=== PATIENT | female | born 1965 | race Caucasian/White ===

== ENCOUNTER → 2022-02-14 | Outpatient (CLI) | payer OTHER, SELFPAY ==
[2022-02-14 09:46] LABS: Bacteria 0 SEEN /hpf (None Seen); Mucous, Urine 0 SEEN /hpf (<or=2+); Red Blood Cells-Urine 0 SEEN /hpf (0-5); Squamous Epithelial Cells - UA 0 SEEN /hpf (5-10)
[2022-02-14 10:31] LABS: Absolute Lymphocyte Count 1.02 X10^3/uL (0.83-4.51); Absolute Neutrophil Count 4.1 X10^3/uL (2.0-7.7); Basophil# 0.03 X10^3/uL; Basophil% 0.5 % (0-1); Eosinophil# 0.04 X10^3/uL; Eosinophils% 0.7 % (0-5); Hematocrit 41.6 % (37-47); Hemoglobin 13.6 g/dL (12.0-15.0); Lymphocyte # 1.02 X10^3/ul (0.83-4.51); Lymphocyte % 18.1 % (19-41); Mean Corp Hgb Conc 32.7 g/dL (32-36); Mean Corpuscular Hgb 31.1 pg (27.0-32.0); Mean Corpuscular Volume 95.2 fL (81-99); Mean Platelet Vol. 9.8 fl (6.2-12.0); Monocyte% 7.1 % (0-10); NRBC Flagged by Analyzer 0 % (0-5); Neutrophil # 4.12 X10^3/uL (2.7-7.7); Neutrophil % 73.1 % (47-70); Platelet Count 276 K/mm3 (150-450); RBC Distribution Width CV 12.8 % (11.6-14.6); RBC Distribution Width SD 45.4 fl (35.1-43.9); Red Blood Count 4.37 M/mm3 (4.2-5.4); White Blood Count 5.6 K/mm3 (4.4-11.0)
[2022-02-14 10:32] LABS: Color, Urine Yellow (Yellow); Glucose, Dipstick Normal (Normal); Ketone-Dipstick Negative (Negative); Leukocyte Esterase-Dipstick 25 /ul (Negative); Nitrite-Dipstick Negative (Negative); Occult Blood-Urine Negative /ul (Negative); Protein-Dipstick Negative (Negative); Urine Bilirubin Dipstick Negative (Negative); Urine Clarity Sl. Cloudy (Clear); Urine Urobilinogen Normal (Normal); Urine pH 6.5 (5.0 - 8.0)
[2022-02-14 10:40] LABS: White Blood Cells 0-5 SEEN /hpf (0-5)
[2022-02-14 10:58] LABS: AST(SGOT) 26 U/L (15-37); Alanine Aminotransfer ALT/SGPT 37 U/L (13-56); Albumin, Serum 4.1 g/dL (3.2-5.0); Alkaline Phosphatase 73 U/L (45-117); Bilirubin, Direct 0.13 mg/dL (0.00-0.30); Creatinine, Serum 0.67 mg/dL (0.55-1.02); EST Glomerular Filtration Rate 96 mL/min (>60); Est Glom Filt Rate - Afr Amer 117 mL/min (>60); Globulin 3.3 g/dL (2.2-4.2); Protein, Total 7.4 g/dL (6.4-8.2)
[2022-02-16 15:36] LABS: Anti-dsDNA Ab 4 IU/mL (0-9)
[2022-02-17 17:24] LABS: Anti-Cardiolipin Ab, IgA, Qn < 9 APL U/mL (0-11); Anti-Cardiolipin Ab, IgG, Qn < 9 GPL U/mL (0-14); Anti-Cardiolipin Ab, IgM, Qn 43 MPL U/mL (0-12); Beta-2-Glycoprotein I IgA <9 (0-25); Beta-2-Glycoprotein I IgG <9 (0-20); Beta-2-Glycoprotein I IgM <9 (0-32); Complement C3 94 mg/dL (82-167)
== END | disposition home or self-care (01) ==
PROVIDERS: PCP Internal Medicine; Referring Provider Internal Medicine Rheumatology; Visit Provider Internal Medicine Rheumatology
DX: R76.0 Raised antibody titer (principal); D72.819 Decreased white blood cell count, unspecified
CPT/HCPCS: 80076; 81001; 82565; 85025; 86146; 86147; 86160; 86225

== ENCOUNTER 2022-03-03 09:21 | Emergency (ER) | payer OTHER, SELFPAY ==
[2022-03-03 09:23] VITALS: BP 112/80; PULSE 87; RESP 18; TEMP 36.7; O2SAT 100; BMI 22.7
--- NOTE | 2022-03-03 09:41 | EX.ED.GENINJ ---
HPI History of Present Illness Chief Complaint: Bite Informant: patient Narrative Narrative: 57-year-old female presenting to the emergency room for dog bite. 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 She notes that she was bit on the right lower leg. The dog pulled her left shoe off. The client stated that the dogs have had their vaccinations including rabies. Patient states her tetanus should be up-to-date. PFSH PFSH Home Medications alprazolam 0.5 mg tablet 1 tab 03/03/22 [History Last Taken Unknown] amoxicillin 875 mg-potassium clavulanate 125 mg tablet 875 mg PO Q12H #10 TABLETS 03/03/22 [Rx Last Taken Unknown] celecoxib 200 mg capsule 1 cap 03/03/22 [History Last Taken Unknown] ibuprofen 600 mg tablet tab 03/03/22 [History Last Taken Unknown] onabotulinumtoxinA 100 unit solution for injection (Botox) ml 03/03/22 [History Last Taken Unknown] vilazodone 40 mg tablet 1 tab 03/03/22 [History Last Taken Unknown] Allergy/AdvReac Type Severity Reaction Status Date / Time acetaminophen [From Vicodin] Allergy Other Verified 03/03/22 09:22 bee venom protein (honey bee) Allergy Hives Verified 03/03/22 09:22 hydrocodone [From Vicodin] Allergy Other Verified 03/03/22 09:22 ranitidine [From Zantac] Allergy Itching Verified 03/03/22 09:22 Social History (Updated 03/03/22 @ 09:[address] Sung Stearns, DO) Smoking Status: Never smoker substance use type: does not use ROS ROS ED Constitutional Constitutional ED: Denies chills or weight loss Eyes Eyes: Denies change in vision or diplopia ENT ENT ED: Denies ear pain, rhinorrhea or sore throat Cardiovascular Cardiovascular: Denies chest pain, orthopnea, palpitations or racing heartbeat Respiratory/Chest Respiratory/Chest: Denies cough, dyspnea or orthopnea Gastrointestinal Gastrointestinal: Denies abdominal pain, diarrhea, nausea or vomiting Genitourinary Genitourinary ED: Denies dysuria, hematuria or urinary frequency Musculoskeletal Musculoskeletal: Denies arthralgias or myalgias Integumentary Reports other Details: Dog Bite ; Denies abscess or rash Neurologic Neurologic: Denies headache(s) or weakness Psychiatric Psychiatric: Denies anxiety, depression, suicidal ideation or suicidal thoughts Endocrine Endocrinology: Denies polydipsia, polyphagia or polyuria Allergic/Immunologic Allergic/Immunologic ED: Denies mouth swelling, tongue swelling or urticaria EXAM Physical Exam Const Vital Signs: 03/03/22 09:23 Temperature 98.0 F Temperature Source Temporal Pulse Rate 87 Respiratory Rate 18 Blood Pressure 112/80 Blood Pressure Mean 90 Pulse Ox 100 Oxygen Delivery Method Room Air Positive well nourished and well developed General Appearance ED: well developed HEENT Reports normocephalic, head/scalp atraumatic and moist mucous membranes Eyes PERRL and EOMs intact bilaterally Neck no lymphadenopathy, supple and no JVD Resp normal respiratory effort and clear to auscultation bilaterally Cardio regular rate, regular rhythm and no murmurs GI normal to inspection, nondistended, normoactive bowel sounds and non-tender Palpation: soft Back/Spine no CVA tenderness and normal ROM Extremity Extremity Narrative: Right lower leg medial aspect demonstrates superficial area of abrasion with surrounding ecchymosis consistent with dog bite. General Extremety ED: Negative for edema General Extremity: Negative for edema Neuro oriented x3 and CN's II-XII intact bilaterally Sensorium / Orientation: alert Motor Exam: strength 5/5 throughout Psych mental status grossly normal Mood & Affect: Negative for depressed or tearful Skin no rashes or lesions noted MDM MDM MDM Narrative Medical decision making narrative: Wound will be cleansed and dressed. She was started on Augmentin. Return if worsening or concerns Discharge Plan Triage Chief Complaint: Bite ED Provider: Sung Stearns Dx/Rx/DC Orders Clinical Impression: Dog bite Instructions: ED Dog Bite Prescriptions: New amoxicillin-pot clavulanate [amoxicillin-pot clavulanate] 875-125 mg tablet 875 mg PO Q12H Qty: 10 0RF No Action celecoxib 200 mg capsule 1 cap Label Comments: TAKE 1 CAPSULE BY MOUTH ONCE DAILY OR DIRECTED BY DR WEBER Botox 100 unit recon soln alprazolam 0.5 mg tablet 1 tab Label Comments: TAKE 1 TABLET BY MOUTH 4 TIMES DAILY ibuprofen 600 mg tablet Label Comments: TAKE 1 TABLET BY MOUTH EVERY 6 HOURS WITH FOOD NEEDED vilazodone 40 mg tablet 1 tab Label Comments: TAKE 1 TABLET BY MOUTHCONCE DAILY WITH DINNER Primary Care Provider: Luisa Barriga Referrals: Luisa Barriga DO [Primary Care Provider] - As Needed Disposition Disposition: Home, Self Care
== END 2022-03-03 10:22 | disposition home or self-care (01) ==
LOC: ED 09:59
PROVIDERS: Emergency Provider Emergency Medicine; PCP Internal Medicine; Visit Provider Emergency Medicine
DX: S81.851A Open bite, right lower leg, initial encounter (principal); W54.0XXA Bitten by dog, initial encounter; Y99.0 Civilian activity done for income or pay; Y92.89 Other specified places as the place of occurrence of the external cause
CPT/HCPCS: 99282

== ENCOUNTER → 2022-05-12 | Outpatient (CLI) | payer OTHER, SELFPAY ==
--- NOTE | 2022-05-12 14:53 | BD_ITS ---
STUDY: DUAL ENERGY X-RAY ABSORPTIOMETRY / DXA REASON FOR EXAM: Female, 57 years old. M810 TECHNIQUE: Bone Mineral Density (BMD) measurements of lumbar spine and bilateral hips were obtained. COMPARISON: None. FINDINGS: Lumbar Spine (L1-L4): g/cm2 (0.689) / T-score (-3.3) / Z-score (-2.0) Findings are suggestive of osteoporosis with a high fracture risk. Left Femur Total: g/cm2 (0.624) / T-score (-2.6) / Z-score (-1.8) Left Femoral Neck: g/cm2 (0.5-1) / T-score (-3.0) / Z-score (-1.8) Right Femur Total: g/cm2 (0.614) / T-score (-2.7) / Z-score (-1.9) Right Femoral Neck: g/cm2 (0.535) / T-score (-2.8) / Z-score (-1.7) BD/Dexa Bone Density Study IMPRESSION: The patient is considered osteoporotic as outlined below according to [employer] (WHO) criteria with a high fracture risk. Reference Information: The T-score is the number of standard deviations above or below the standard which is normal for young adults at their peak bone mineral density. The World Health Organization (WHO) interprets the T-scores as follows: Above -1 Normal bone density Between -1 and -2.5 Osteopenia Equal to / or below -2.5 Osteoporosis As a practical clinical guideline, osteopenia may be graded as follows: Mild -1 through -1.5 Moderate -1.6 through -2.0 Severe -2.1 through -2.4 The Z-score is the number of standard deviations above or below age-matched controls. A Z-score of less than -1.5 would be considered abnormal. References: 1. NIH Osteoporosis and Related Bone Diseases www osteo.org 2. International Society for Clinical Densitometry www iscd.org 3. National Osteoporosis Foundation www nof.org Electronically Signed: Mauro Olivo MD at 9:35 EDT ,
--- NOTE | 2022-05-12 14:54 | BI_ITS ---
MAMMOGRAPHY - BILATERAL SCREENING REASON FOR EXAM: Female, 57 years old. Routine annual screening examination. PERTINENT HISTORY: Aunt with breast cancer. Bilateral breast implants. TECHNIQUE: Digital bilateral breast arsh (3D mammographic acquisition) in the CC and MLO projections. 2-D mediolateral oblique (MLO) and craniocaudad (CC) views of both breasts were obtained. CAD: Full Field Digital Mammography with Computer Added Detection was performed. COMPARISON: No comparison mammograms available at this time. If any prior films become available, an addendum to this report can be generated. FINDINGS: Breast Composition: The breasts are heterogeneously dense, which may obscure small masses. There are no dominant masses or suspicious calcifications. Bilateral breast implants are seen. The contour of the breast implants are lobulated with a rim calcification. No other significant abnormalities are identified. BI/SCRN MAMM (CAD)W/ARSH BILAT IMPRESSION: Negative screening mammogram. Yearly followup mammogram recommended. (A) ASSESSMENT CATEGORY: BIRADS Category 2: Benign. A letter regarding these results will be sent to the patient by the facility within 30 days. Approximately 10% of breast cancers are not detected by mammography. A normal mammogram should not delay biopsy of a clinically suspicious abnormality. [id number] Electronically Signed: Mauro Olivo MD at 10:56 EDT ,
== END | disposition home or self-care (01) ==
PROVIDERS: PCP Internal Medicine
DX: Z12.31 Encounter for screening mammogram for malignant neoplasm of breast (principal); M81.0 Age-related osteoporosis without current pathological fracture; Z80.3 Family history of malignant neoplasm of breast; Z98.82 Breast implant status
CPT/HCPCS: 77063; 77067; 77080

== ENCOUNTER → 2022-05-22 | Outpatient (CLI) | payer OTHER, SELFPAY ==
[2022-05-22 09:36] LABS: Bacteria 0 SEEN /hpf (None Seen); Mucous, Urine 0 SEEN /hpf (<or=2+); Red Blood Cells-Urine 0 SEEN /hpf (0-5)
[2022-05-22 10:17] LABS: Absolute Lymphocyte Count 1.41 X10^3/uL (0.83-4.51); Absolute Neutrophil Count 3.6 X10^3/uL (2.0-7.7); Basophil# 0.04 X10^3/uL; Basophil% 0.7 % (0-1); Eosinophil# 0.39 X10^3/uL; Eosinophils% 6.4 % (0-5); Hemoglobin 13.1 g/dL (12.0-15.0); Lymphocyte # 1.41 X10^3/ul (0.83-4.51); Mean Corpuscular Hgb 30.2 pg (27.0-32.0); Mean Corpuscular Volume 94.5 fL (81-99); Monocyte# 0.69 X10^3/uL; Monocyte% 11.2 % (0-10); NRBC Flagged by Analyzer 0 % (0-5); Neutrophil # 3.59 X10^3/uL (2.7-7.7); Neutrophil % 58.4 % (47-70); Platelet Count 256 K/mm3 (150-450); RBC Distribution Width CV 12.8 % (11.6-14.6); RBC Distribution Width SD 44.8 fl (35.1-43.9); Red Blood Count 4.34 M/mm3 (4.2-5.4); White Blood Count 6.1 K/mm3 (4.4-11.0)
[2022-05-22 10:21] LABS: Color, Urine Yellow (Yellow); Glucose, Dipstick Normal (Normal); Ketone-Dipstick Negative (Negative); Leukocyte Esterase-Dipstick 100 /ul (Negative); Nitrite-Dipstick Negative (Negative); Occult Blood-Urine Negative /ul (Negative); Protein-Dipstick Negative (Negative); Specific Gravity, Urine 1.005 (1.002-1.030); Urine Bilirubin Dipstick Negative (Negative); Urine Clarity Clear (Clear); Urine Urobilinogen Normal (Normal)
[2022-05-22 10:37] LABS: Squamous Epithelial Cells - UA 0-5 SEEN /hpf (5-10); White Blood Cells 10-25 SEEN /hpf (0-5)
[2022-05-22 10:43] LABS: Vitamin D,25 Hydroxy 46.1 ng/mL
[2022-05-22 11:02] LABS: AST(SGOT) 30 U/L (15-37); Alanine Aminotransfer ALT/SGPT 33 U/L (13-56); Albumin, Serum 3.8 g/dL (3.2-5.0); Alkaline Phosphatase 82 U/L (45-117); Anion Gap 5 (5-15); BUN 8 mg/dL (7-18); BUN/Creat Ratio 10.5 RATIO (10-20); Bilirubin, Direct 0.08 mg/dL (0.00-0.30); Calcium,Total 9.2 mg/dL (8.5-10.1); Chloride 105 mmol/L (98-107); Cholesterol 180 mg/dL (200); Creatinine, Serum 0.76 mg/dL (0.55-1.02); EST Glomerular Filtration Rate 83 mL/min (>60); Est Glom Filt Rate - Afr Amer 101 mL/min (>60); Globulin 3.8 g/dL (2.2-4.2); Glucose 90 mg/dL (74-106); High Density Lipoprotein 79 mg/dL; Potassium 4.5 mmol/L (3.5-5.1); Protein, Total 7.6 g/dL (6.4-8.2); Sodium Level 138 mmol/L (136-145); Triglycerides 56 mg/dL; Very Low Density Lipoprotein 11 mg/dL (5-40)
[2022-05-26 15:23] LABS: Anti-dsDNA Ab 4 IU/mL (0-9)
[2022-05-27 11:59] LABS: Anti-Cardiolipin Ab, IgG, Qn < 9 GPL U/mL (0-14); Anti-Cardiolipin Ab, IgM, Qn 39 MPL U/mL (0-12); Beta-2-Glycoprotein I IgA <9 (0-25); Beta-2-Glycoprotein I IgG <9 (0-20); Complement C3 105 mg/dL (82-167)
[2022-05-27 12:00] LABS: Beta-2-Glycoprotein I IgM <9 (0-32)
== END | disposition home or self-care (01) ==
PROVIDERS: PCP Internal Medicine; Visit Provider Internal Medicine Rheumatology
DX: Z00.00 Encounter for general adult medical examination without abnormal findings (principal); D68.61 Antiphospholipid syndrome; Z13.220 Encounter for screening for lipoid disorders; R53.83 Other fatigue; R76.0 Raised antibody titer; E55.9 Vitamin D deficiency, unspecified; Z79.899 Other long term (current) drug therapy
CPT/HCPCS: 36415; 80053; 80061; 81001; 82248; 82306; 85025; 86146; 86147; 86160; 86225

== ENCOUNTER → 2022-05-25 | Outpatient (CLI) | payer OTHER, SELFPAY ==
--- NOTE | 2022-05-25 09:27 | US_ITS ---
STUDY: ULTRASOUND OF THE FEMALE PELVIS - COMPLETE REASON FOR EXAM: Female, 57 years old. POST ESSIE BLEEDING TECHNIQUE: Endovaginal. Transvaginal US was obtained to better visualized the ovaries. COMPARISON: None. FINDINGS: The uterus is anteverted and is in a midline position. The uterus measures 6.1 x 4 cm. Normal uterine cervix. The endometrium measures 2 mm in thickness, and is hyperechoic. There is no demonstrated endometrial mass. There is no demonstrated myometrial mass. I.U.D. - The patient does not have an I.U.D. The right ovary is visualized. The right ovary measures 1.7 cm. There is no right ovarian cyst or ovarian mass. There is no visualized right adnexal mass or complex lesion. There is normal arterial and normal venous vascularity. Prominent appearing vessels are noted. There is nonvisualization of the left ovary due to overlying bowel gas. There is no fluid in the cul-de-sac. Urinary bladder volume is (in cc) 135. US/Pelvic (Non ) IMPRESSION: There are no acute findings. Electronically Signed: Javon Petersen MD at 19:15 EDT ,
--- NOTE | 2022-05-25 09:27 | US_ITS ---
STUDY: ULTRASOUND OF THE FEMALE PELVIS - COMPLETE REASON FOR EXAM: Female, 57 years old. POST ESSIE BLEEDING TECHNIQUE: Endovaginal. Transvaginal US was obtained to better visualized the ovaries. COMPARISON: None. FINDINGS: The uterus is anteverted and is in a midline position. The uterus measures 6.1 x 4 cm. Normal uterine cervix. The endometrium measures 2 mm in thickness, and is hyperechoic. There is no demonstrated endometrial mass. There is no demonstrated myometrial mass. I.U.D. - The patient does not have an I.U.D. The right ovary is visualized. The right ovary measures 1.7 cm. There is no right ovarian cyst or ovarian mass. There is no visualized right adnexal mass or complex lesion. There is normal arterial and normal venous vascularity. Prominent appearing vessels are noted. There is nonvisualization of the left ovary due to overlying bowel gas. There is no fluid in the cul-de-sac. Urinary bladder volume is (in cc) 135. US/Transvaginal Non- IMPRESSION: There are no acute findings. Electronically Signed: Javon Petersen MD at 19:15 EDT ,
== END | disposition home or self-care (01) ==
PROVIDERS: PCP Internal Medicine
DX: N95.0 Postmenopausal bleeding (principal)
CPT/HCPCS: 76830; 76856

== ENCOUNTER → 2022-08-10 | Outpatient (CLI) | payer OTHER, SELFPAY ==
--- NOTE | 2022-08-10 11:08 | US_ITS ---
INDICATION: Enlarged thyroid. EXAMINATION: Ultrasound US Thyroid (eg thyroid, parathyroid, parotid) TECHNIQUE: Kaur scale and color doppler imaging was performed of the thyroid gland. COMPARISON: No 3.9 x 1.1 x 1.2 cm., both studies are available for comparison at the time of dictation. FINDINGS: RIGHT THYROID LOBE: The right lobe of the thyroid measures approximately 3.8 x 1.6 x 1.4 cm. Homogeneous echotexture with normal vascularity. [No thyroid nodules are present. LEFT THYROID LOBE: Left lobe of thyroid measures 3.9 x 1.1 x 1.2 cm. Homogeneous echotexture with normal vascularity. [No thyroid nodules are present. ISTHMUS: The isthmus measures 1.7 mm in AP dimension.. No thyroid nodules are present. US/Thyroid IMPRESSION: Negative thyroid ultrasound examination. Electronically Signed: Cely Fox MD at 7:39 EST ,
[2022-08-10 13:08] LABS: T3 Total - Triiodothyronine 1.14 ng/mL (0.6-1.81)
[2022-08-10 13:26] LABS: T4 Free Direct 0.93 ng/dL (0.76-1.46)
== END | disposition home or self-care (01) ==
LOC: US 11:08
PROVIDERS: PCP Internal Medicine; Referring Provider Internal Medicine; Visit Provider Internal Medicine
DX: E04.9 Nontoxic goiter, unspecified (principal)
CPT/HCPCS: 36415; 76536; 84439; 84443; 84480

== ENCOUNTER → 2022-08-26 | Outpatient (CLI) | payer OTHER, SELFPAY ==
[2022-08-26 08:01] LABS: PTHIN 32.7 pg/mL (18.4-80.1)
[2022-08-26 08:02] LABS: AST(SGOT) 23 U/L (15-37); Alanine Aminotransfer ALT/SGPT 33 U/L (13-56); Albumin, Serum 3.7 g/dL (3.2-5.0); Alkaline Phosphatase 70 U/L (45-117); Anion Gap 2 (5-15); BUN 10 mg/dL (7-18); BUN/Creat Ratio 12.3 RATIO (10-20); Calcium,Total 9.3 mg/dL (8.5-10.1); Chloride 104 mmol/L (98-107); Creatinine, Serum 0.82 mg/dL (0.55-1.02); EST Glomerular Filtration Rate 77 mL/min (>60); Est Glom Filt Rate - Afr Amer 93 mL/min (>60); Globulin 3.6 g/dL (2.2-4.2); Glucose 101 mg/dL (74-106); Potassium 4.1 mmol/L (3.5-5.1); Protein, Total 7.3 g/dL (6.4-8.2); Sodium Level 137 mmol/L (136-145); T4 Free Direct 0.95 ng/dL (0.76-1.46); Thyroid Stim Hormone (TSH) 6.84 uIU/mL (0.358-3.74)
[2022-08-28 11:50] LABS: Thyroglobulin Antibody < 1.0 IU/mL (0.0-0.9); Thyroid Peroxidase AB 11 IU/mL (0-34)
== END | disposition home or self-care (01) ==
LOC: LAB 07:03
PROVIDERS: PCP Internal Medicine; Referring Provider Internal Medicine Endocrinology, Diabetes & Metabolism; Visit Provider Internal Medicine Endocrinology, Diabetes & Metabolism
DX: M81.0 Age-related osteoporosis without current pathological fracture (principal); R94.6 Abnormal results of thyroid function studies; E83.42 Hypomagnesemia
CPT/HCPCS: 36415; 80053; 83735; 83970; 84439; 84443; 86376; 86800

== ENCOUNTER 2022-08-28 09:55 | Emergency (ER) | payer OTHER, SELFPAY ==
[2022-08-28 09:56] VITALS: BP 135/73; PULSE 69; RESP 16; TEMP 36.4; O2SAT 99; BMI 23.3
--- NOTE | 2022-08-28 10:36 | RAD_ITS ---
STUDY: X-RAY - THORACIC SPINE REASON FOR EXAM: Female, 57 years old. Back injury TECHNIQUE: 3 view(s) of the thoracic spine were obtained. COMPARISON: None. FINDINGS: Normal kyphosis of the thoracic spine. There is no substantial scoliosis. Minimal degree of loss of height of the superior endplate of the T9 vertebrae. There is multilevel disc space narrowing of the thoracic spine. The soft tissue structures are unremarkable. RAD/Thoracic Spine 2 Views IMPRESSION: Multilevel mild disc space narrowing. Mildly of the compression of the superior endplate of the T9 vertebrae. Electronically Signed: Mauro Olivo MD at 11:36 EST ,
--- NOTE | 2022-08-28 10:37 | EDS_ITS ---
HPI History of Present Illness Chief Complaint: Back Detail of Chief Complaint: Back pain Informant: patient Narrative Narrative: Patient presents with back pain that started while at work today. 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 Patient says she has history of osteoporosis. She denies pain rating down her legs. She denies weakness in extremities. She de nies change in bowel or bladder function. Patient has a history of autoimmune disorders including rainouts and antiphospholipid antibody syndrome. 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 [facility] Medical History (Updated 08/28/22 @ 11:[address] Gabrielle Boucher, DO) APS (antiphospholipid syndrome) Marimar's disease Osteoporosis Raynaud disease Home Medications alprazolam 0.5 mg tablet 1 tab PO PRN PRN Anxiety 03/03/22 [History Last Taken Unknown] celecoxib 200 mg capsule 1 cap PO PRN PRN Pain 03/03/22 [History Last Taken Unknown] ibuprofen 600 mg tablet 600 tab PO PRN PRN Pain 03/03/22 [History Last Taken Unknown] onabotulinumtoxinA 100 unit solution for injection (Botox) 100 ml subcut QMONTH 03/03/22 [History Last Taken Unknown] vilazodone 40 mg tablet 1 tab PO DAILY 03/03/22 [History Last Taken Unknown] aspirin 81 mg chewable tablet 1 tab PO DAILY 08/28/22 [History Last Taken Unknown] cyclobenzaprine 10 mg tablet 10 mg PO TID PRN Muscle Spasm #20 TABLETS 08/28/22 [Rx Last Taken Unknown] levothyroxine 75 mcg tablet 75 mcg PO DAILY 08/28/22 [History Last Taken Unknown] oxycodone-acetaminophen 5 mg-325 mg tablet 1 tab PO Q6H PRN PRN Pain 3 days #12 TABLETS 08/28/22 [Rx Last Taken Unknown] Allergy/AdvReac Type Severity Reaction Status Date / Time acetaminophen [From Vicodin] Allergy Other Verified 08/28/22 09:58 bee venom protein (honey bee) Allergy Hives Verified 08/28/22 09:58 hydrocodone [From Vicodin] Allergy Other Verified 08/28/22 09:58 ranitidine [From Zantac] Allergy Itching Verified 08/28/22 09:58 Surgical History (Updated 08/28/22 @ 10:24 by Lisandra Prasad) History of tonsillectomy Social History (Updated 03/03/22 @ 09:[address] Sung Stearns, DO) Smoking Status: Former smoker substance use type: does not use ROS ROS ED Review of Systems ROS Unobtainable: other Constitutional Constitutional ED: Reports lethargy; Denies chills, fever(s), sweats or weight loss Eyes Eyes: Denies blurry vision, change in vision or diplopia ENT ENT ED: Denies rhinorrhea or sore throat Cardiovascular Cardiovascular: Denies chest pain, orthopnea or racing heartbeat Respiratory/Chest Respiratory/Chest: Denies cough, dyspnea, dyspnea on exertion, orthopnea or sputum Gastrointestinal Gastrointestinal: Denies abdominal pain, diarrhea, nausea or vomiting Genitourinary Genitourinary ED: Denies dysuria, hematuria or urinary frequency Musculoskeletal Musculoskeletal: Reports back pain; Denies arthralgias, myalgias or neck pain Integumentary Denies abscess, Abrasions or rash Neurologic Neurologic: Denies headache(s) or weakness Psychiatric Psychiatric: Denies anxiety, depression or suicidal thoughts Endocrine Endocrinology: Denies polydipsia, polyphagia or polyuria Hematologic/Lymphatic Hematologic/Lymphatic: Denies easy bleeding, easy bruising or lymphadenopathy Allergic/Immunologic Allergic/Immunologic ED: Denies mouth swelling, tongue swelling or urticaria EXAM Physical Exam Const Vital Signs: 08/28/22 09:56 Temperature 97.6 F L Temperature Source Temporal Pulse Rate 69 Respiratory Rate 16 Blood Pressure 135/73 H Blood Pressure Mean 93 Pulse Ox 99 Oxygen Delivery Method Room Air Positive well nourished and well developed General Appearance ED: well developed and NAD HEENT Reports TM's clear and moist mucous membranes normocephalic and atraumatic; Negative for trauma or tenderness Tympanic Membrane ED: Yes TM's clear Eyes PERRL and EOMs intact bilaterally General Eye ED: Negative for pale conjunctiva or scleral icterus Neck no lymphadenopathy, supple and no JVD General: Negative for tenderness Chest Wall inspection of chest normal and palpation of chest normal Chest: Negative for tenderness Resp normal respiratory effort and clear to auscultation bilaterally Effort and Inspection: Negative for respiratory distress or pain with movement Auscultation: Negative for rhonchi, wheezes or diminished lung sounds Cardio regular rate, regular rhythm, S1 normal heart sound, S2 normal heart sound and no murmurs Peripheral Pulses: pulses 2+ throughout GI normal to inspection, nondistended, normoactive bowel sounds, soft to palpation, non-tender, non-distended and no masses Back/Spine no CVA tenderness Back/Spine Narrative: Tenderness to the lower thoracic spine and upper lumbar spine diffusely. No bony step-offs noted. Negative straight leg raises. Deep tendon reflexes plus 2 out of 4 bilaterally at the patella Achilles. Patient has normal 5 extension. Patient has normal sensation to light touch. Extremity normal to inspection General Extremety ED: Negative for edema General Extremity: Negative for edema Neuro oriented x3, CN's II-XII intact bilaterally, no sensory deficits noted and gait normal Sensorium / Orientation: awake, alert, oriented to person, oriented to place and oriented to time Motor Exam: strength 5/5 throughout and strength abnormal Psych mental status grossly normal Skin no rashes or lesions noted and no wounds MDM MDM MDM Narrative Medical decision making narrative: Patient was given ibuprofen p.o. This point patient will be referred to orthopedic surgeon on-call. Patient will be given a prescription for Flexeril and Percocet. She will take ibuprofen at home. Patient given work restrictions . Lab Data Attestation: I reviewed the patient's lab results. Radiography Diagnostic Testing: Clinical Impression(s) from Imaging Studies Thoracic Spine X-Ray 08/28/22 10:36 IMPRESSION: Multilevel mild disc space narrowing. Mildly of the compression of the superior endplate of the T9 vertebrae. Electronically Signed: Mauro Olivo MD at 11:36 EST , Lumbar Spine X-Ray 08/28/22 11:10 IMPRESSION: Exaggerated lumbar lordosis. Electronically Signed: Mauro Olivo MD at 11:35 EST , 2 view x-rays of thoracic spine obtained interpreted by myself as no acute fractures or dislocations. Radiology felt there was a endplate compression fracture of T9. Three-view x-rays of the lumbar spine to monitor potation showed no acute fractures and radiology was in agreement. Discharge Plan Triage Chief Complaint: Back ED Provider: Gabrielle Boucher Dx/Rx/DC Orders Clinical Impression: Compression fracture of T9 vertebra, Back strain Instructions: ED Back Sprain/Strain, ED Fracture, Vertebral Compression Prescriptions: New cyclobenzaprine [cyclobenzaprine] 10 mg tablet 10 mg PO TID PRN (Reason: Muscle Spasm) Qty: 20 0RF oxycodone-acetaminophen [oxycodone-acetaminophen] 5-325 mg tablet 1 tab PO Q6H PRN PRN (Reason: Pain) 3 Days Qty: 12 0RF No Action celecoxib 200 mg capsule 1 cap PO PRN PRN (Reason: Pain) Label Comments: TAKE 1 CAPSULE BY MOUTH ONCE DAILY OR DIRECTED BY DR WEBER Botox 100 unit recon soln 100 ml subcut QMONTH Rx Instructions: EVERY 3-4 MONTHS alprazolam 0.5 mg tablet 1 tab PO PRN PRN (Reason: Anxiety) Label Comments: TAKE 1 TABLET BY MOUTH 4 TIMES DAILY ibuprofen 600 mg tablet 600 tab PO PRN PRN (Reason: Pain) Label Comments: TAKE 1 TABLET BY MOUTH EVERY 6 HOURS WITH FOOD NEEDED vilazodone 40 mg tablet 1 tab PO DAILY Label Comments: TAKE 1 TABLET BY MOUTHCONCE DAILY WITH DINNER levothyroxine 75 mcg tablet 75 mcg PO DAILY Label Comments: TAKE 1 TABLET BY MOUTHJONCE DAILYD aspirin 81 mg Tablet,Chewable 1 tab PO DAILY Primary Care Provider: Luisa Barriga Referrals: Luisa Barriga DO [Primary Care Provider] - Inderjit Ibrahim DO [Med Staff - Active Staff] - 3-5 Days Disposition Disposition: Home, Self Care
[2022-08-28] MEDS: Ibuprofen 400 MG Tablet 800 MG PO (10:53)
--- NOTE | 2022-08-28 11:10 | RAD_ITS ---
STUDY: X-RAY - LUMBAR SPINE REASON FOR EXAM: Female, 57 years old. Low back pain following injury. TECHNIQUE: 2 view(s) of the lumbar spine were obtained. COMPARISON: None FINDINGS: There is an exaggerated lumbar lordosis. There is no substantial scoliosis. There is a normal alignment of the vertebrae. Normal vertebral bodies and endplates. Normal disc space heights. The soft tissue structures are unremarkable. RAD/Lumbar Spine 2 or 3 Views IMPRESSION: Exaggerated lumbar lordosis. Electronically Signed: Mauro Olivo MD at 11:35 EST ,
[2022-08-28 12:00] VITALS: BP 100/74; PULSE 68; RESP 18; O2SAT 97
[2022-08-28 12:26] VITALS: BP 101/74; PULSE 62; RESP 16; TEMP 36.8; O2SAT 97
== END 2022-08-28 12:30 | disposition home or self-care (01) ==
PROVIDERS: Emergency Provider Emergency Medicine; PCP Internal Medicine; Visit Provider Emergency Medicine
DX: S22.079A Unspecified fracture of T9-T10 vertebra, initial encounter for closed fracture (principal); S39.012A Strain of muscle, fascia and tendon of lower back, initial encounter; X50.0XXA Overexertion from strenuous movement or load, initial encounter; Y93.F2 Activity, caregiving, lifting; Y99.0 Civilian activity done for income or pay; M81.0 Age-related osteoporosis without current pathological fracture; Z79.82 Long term (current) use of aspirin; Z79.899 Other long term (current) drug therapy; Z79.890 Hormone replacement therapy; Z87.891 Personal history of nicotine dependence
CPT/HCPCS: 72070; 72100; 99283

== ENCOUNTER → 2022-09-08 | Outpatient (CLI) | payer OTHER, SELFPAY | END | disposition home or self-care (01) | PROVIDERS: PCP Internal Medicine; Visit Provider Physician Assistant | DX: M81.0 Age-related osteoporosis without current pathological fracture (principal) | CPT/HCPCS: 81050 ==

== ENCOUNTER → 2022-09-16 | Outpatient (CLI) | payer OTHER, SELFPAY ==
[2022-09-16 10:07] LABS: Thyroid Stim Hormone (TSH) 2.19 uIU/mL (0.358-3.74)
== END | disposition home or self-care (01) ==
LOC: LAB 09:03
PROVIDERS: PCP Internal Medicine; Referring Provider Physician Assistant; Visit Provider Physician Assistant
DX: R94.6 Abnormal results of thyroid function studies (principal)
CPT/HCPCS: 36415; 84443

== ENCOUNTER → 2022-10-19 | Outpatient (CLI) | payer OTHER, SELFPAY ==
--- NOTE | 2022-10-19 15:04 | ECHOD_ITS ---
Reason For Study: MITRAL VALVE PROLAPSE Procedure This was a 2D Doppler, Color Flow transthoracic echocardiogram. The exam was of adequate technical quality. Exam performed in department. Left Ventricle Normal left ventricle. Apical false tendon noted. Left ventricular systolic function is normal. The estimated ejection fraction is 65 %. No evidence for diastolic dysfunction. Right Ventricle Normal RV size. Normal systolic function. Atria Normal left atrium. Normal right atrium. No doppler evidence for ASD. Mitral Valve There is no mitral annular calcification. Mild mitral valve prolapse. Trivial mitral valve insufficiency. Tricuspid Valve Normal tricuspid valve. Trivial tricuspid valve insufficiency. Right ventricular systolic pressure estimated to be 23 mmHg. Aortic Valve Trisinus/trileaflet aortic valve. Normal aortic valve. Pulmonic Valve The pulmonic valve is not well visualized. Great Vessels Normal sized aortic root. Pericardium/Pleural No pericardial effusion. MMode/2D Measurements & Calculations LVIDd: 4.1 cm IVSd: 0.59 cm Ao root diam: 2.7 cm LVIDs: 2.7 cm LVPWd: 0.64 cm RVDd: 2.7 cm FS: 35.0 % LAV(MOD-bp): 25.5 ml LVAd ap4: 22.4 cm2 SV(MOD-sp4): 39.6 ml LAV(MOD-bp) Indexed: 16.0 ml/m2 LVLd ap4: 6.8 cm LAV(MOD-sp2): 24.6 ml EDV(MOD-sp4): 60.3 ml LAV(MOD-sp4): 23.5 ml EDV(sp4-el): 62.0 ml LVAs ap4: 11.7 cm2 LVLs ap4: 5.5 cm ESV(MOD-sp4): 20.7 ml ESV(sp4-el): 21.0 ml EF(MOD-sp4): 65.7 % EF(sp4-el): 66.2 % SV(sp4-el): 41.0 ml LA A4 area: 11.0 cm2 LA dimension(2D): 2.9 cm RA A4 area: 9.9 cm2 Time Measurements MV dec time: 0.21 sec Doppler Measurements & Calculations MV E max ochoa: 80.1 cm/sec Lat Peak E' Ochoa: 16.0 cm/sec Med Peak E' Ochoa: 13.1 cm/sec MV A max ochoa: 56.3 cm/sec E/E' lat: 5.0 E/E' med: 6.1 MV E/A: 1.4 Ao V2 max: 105.3 cm/sec LV V1 max: 103.3 cm/sec PA V2 max: 88.3 cm/sec Ao max P.4 mmHg LV V1 max P.3 mmHg TR max ochoa: 226.0 cm/sec TR max P.4 mmHg ECHO/Echo Complete Interpretation Summary Left ventricular systolic function is normal. The estimated ejection fraction is 65 %. Apical false tendon noted. Mild mitral valve prolapse. Trivial mitral valve insufficiency. Trivial tricuspid valve insufficiency. Right ventricular systolic pressure estimated to be 23 mmHg. No evidence for diastolic dysfunction. Ordering Physician: Jack Bella Referring Physician: AIDE VERMA Performed By: Hiral Jacobs RDCS
== END | disposition home or self-care (01) ==
LOC: CVS 15:03
PROVIDERS: PCP Internal Medicine; Visit Provider Internal Medicine Cardiovascular Disease
DX: I34.1 Nonrheumatic mitral (valve) prolapse (principal); I34.0 Nonrheumatic mitral (valve) insufficiency; I36.1 Nonrheumatic tricuspid (valve) insufficiency
CPT/HCPCS: 93306

== ENCOUNTER → 2022-11-03 | Outpatient (CLI) | payer OTHER, SELFPAY ==
[2022-11-03 18:05] LABS: Vitamin D,25 Hydroxy 53.9 ng/mL
[2022-11-03 18:06] LABS: ALB/GLOB Ratio 1.2 RATIO (0.9-2.4); AST(SGOT) 28 U/L (15-37); Alanine Aminotransfer ALT/SGPT 37 U/L (13-56); Alkaline Phosphatase 64 U/L (45-117); Anion Gap 6 (5-15); BUN 16 mg/dL (7-18); BUN/Creat Ratio 21.3 RATIO (10-20); Calcium,Total 9.2 mg/dL (8.5-10.1); Chloride 106 mmol/L (98-107); Creatinine, Serum 0.75 mg/dL (0.55-1.02); EST Glomerular Filtration Rate 84 mL/min (>60); Est Glom Filt Rate - Afr Amer 102 mL/min (>60); Globulin 3.3 g/dL (2.2-4.2); Glucose 85 mg/dL (74-106); Potassium 4.3 mmol/L (3.5-5.1); Protein, Total 7.3 g/dL (6.4-8.2); Sodium Level 141 mmol/L (136-145); Thyroid Stim Hormone (TSH) 2.03 uIU/mL (0.358-3.74)
== END | disposition home or self-care (01) ==
LOC: MTLAB 15:45
PROVIDERS: PCP Internal Medicine; Referring Provider Physician Assistant; Visit Provider Physician Assistant
DX: E03.8 Other specified hypothyroidism (principal); E83.42 Hypomagnesemia
CPT/HCPCS: 36415; 80053; 82306; 84443

== ENCOUNTER 2022-11-17 15:00 | Outpatient (RCR) | payer OTHER, SELFPAY ==
--- NOTE | 2022-10-14 09:10 | HP.PTEVAL_ITS ---
Patient's Visit Information VI HOLMAN is a 57 year old F referred to Physical Therapy by IGLESIA Dong with a diagnosis of T9 Compression Fracture. Date of Evaluation: 10/14/22 Physical Therapist: Desirae Jefferson DPT - Visit Plan Frequency: 2x /Week Duration: 4 Weeks Plan: Aquatic Therapy- focus on core and scap s/s- pt fearful of movement. HEP Given IE: TA contraction, bridge, hip add and hip abd seated - Subjective Compression fx of T9-Aug 28 she was lifting a patient and felt a pop- went to ER and they did saw the compression fracture. She is seeing ortho Polina Aviles- She has been in a back brace since and feels that it really helps- she was told by MD to wean herself off- she is good in the AM but by afternoon she puts it on when she is in pain. She will also put it on during the night if she is painful. She has Marimar that has effected her bones- she is waiting approval for tx of osteoporosis. She is looking for desk jobs due to fear. She has been a nurse for 25 years and has never had any issues before. Pain at its worst 7/10 Agg: sitting to long, running the vaccuum, reaching outside of base of support, person hygiene reaching behind her back. Eases: medication, rest (propped on pillows either in supine or seated) and sleeping with a heating pad Best: 1/10. Patient describes the pain as dull and achy. Pain is across the thoracic spine Right>Left. Sometimes it radiates to the lumbar spine depends on her activity level. She has been trying to watch her posture. No N/T. No change in bowel/bladder incontinence. 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 Prior to bed she takes her medication. Prior to the injury she was very active-she likes to ride bikes, dance, jump on the trampoline with the kids. X- rays were taken most recently last week. PMHx/Meds: no changes since saw ortho 10/02/22 - Objective Posture: FH, RS- very guarded. Gait: decreased arm swing and rotation- guarded. HR/TR: able without UE A. SLS: 15 sec bilateral with increased sway. ROM: Lumbar: Flexion: hands to floor, Extn: WFL, SB: WFlL, Rotation: decreased by 25% with pain bilaterally, UE and LE WFL in all planes. Strength: Core: fair minus, Scap: fair minus, Shoulder: 4+/5, Elbow: 5/5, Hip: 4+/5, Knee/Ankle: 5/5. Flex: HS: moderate, Gastroc: moderate. Palpation: tender along paraspinals of the thoracic spine right>left - Balance/Special Test Scores Oswestry Low Back Score: 22 - Goals Goal 1:: Patient will be I with HEP and progression Goal Time Frame: 4-6 Weeks Goal 2:: Patient will maintain proper posture t/o tx session to demo increased core and scap s/s Goal Time Frame: 4-6 Weeks Goal 3:: Patient will ambulate >300 feet with good pelvic rotation without pain Goal Time Frame: 4-6 Weeks Goal 4:: Patient will report 80% better Goal Time Frame: 4-6 Weeks - Rehabilitation Potential Physical Therapy Diagnosis: Patient presents with hypomobility- she has decreased pain free ROM, scap and core strength/stabilization and muscular endurance leading to poor posture and increased with pain ADL's Rehabilitation Potential: Good - Anticipated Interventions Patient/Client Instruction: Educate patient on: Benefits of Fitness Program Therapeutic Exercise to Include: Strength training, Endurance training, Balance training, Coordination, Agility training, Body mechanics, Postural training, Flexibilty training, Gait and locomotor training, In an aquatic setting, Dynamic Lumbar Stabilization, Scapular Strength/Stabilization For the Purpose of:: To improve muscle performance and motor function Thank you for the opportunity to evaluate your patient. For Medicare and Medicare HMO plans, please review the plan of care and approve it. It will need to be FAXED BACK to us at [phone] for Medicare purposes. For Medicare only, by signing this I certify the plan of care. Please let me know if there are questions or concerns regarding this plan of care. Physician Signature: Date:
--- NOTE | 2022-11-12 15:35 | HP.PTREVAL ---
IGLESIA Dong, It has been my pleasure to treat VI HOLMAN over the last 8 visits for T9 Compression Fracture. Please see the progress note below for an update on the physical therapy plan of care! Subjective: She still has pain- in her spine with rotation- when she is laying down she has rib pain- sleeping with the heating pad. She really likes some of the exercises- she does feel like its helping. Goes back to MD tomorrow and will get another C9 Objective/Function: Posture: FH, RS- very guarded. Gait: decreased arm swing and rotation- guarded. HR/TR: able without UE A. SLS: 15 sec bilateral with increased sway. ROM: Lumbar: Flexion: hands to floor, Extn: WFL, SB: WFlL, Rotation: decreased by 25% with pain bilaterally, UE and LE WFL in all planes. Strength: Core: fair minus, Scap: fair minus, Shoulder: 4+/5, Elbow: 5/5, Hip: 4+/5, Knee/Ankle: 5/5. Flex: HS: moderate, Gastroc: moderate. Palpation: tender along paraspinals of the thoracic spine right>left Plan Plan: 11/12/22: Will complete 2x a week until C9 Expires 11/20 then will wait for C9 then continue 2x a week for 4 weeks if approved by C9. Cont with current POC. 10/29/22: Land therapy okay per ER per pt request. *NEEDING REVISION OF CHART TO INCLUDE LAND PT (D/T POOR TOLERANCE OF COLD WITH POOL D/T RAYNAUDS) Balance/Gait/Functional tests - Balance/Special Test Scores Oswestry Low Back Score: 14 Goals Goal 1:: Patient will be I with HEP and progression Goal Time Frame: 4-6 Weeks Goal 2:: Patient will maintain proper posture t/o tx session to demo increased core and scap s/s Goal Time Frame: 4-6 Weeks Goal 3:: Patient will ambulate >300 feet with good pelvic rotation without pain Goal Time Frame: 4-6 Weeks Goal 4:: Patient will report 80% better Goal Time Frame: 4-6 Weeks Anticipated Interventions Patient/Client Instruction: Educate patient on: Benefits of Fitness Program Therapeutic Exercise to Include: Strength training, Endurance training, Balance training, Coordination, Agility training, Body mechanics, Postural training, Flexibilty training, Gait and locomotor training, In an aquatic setting, Dynamic Lumbar Stabilization, Scapular Strength/Stabilization For the Purpose of:: To improve muscle performance and motor function Please do not hesitate to contact me at [phone] by phone or if you have questions or concerns regarding this new plan of care! Sincerely, BRAN CotoT
--- NOTE | 2023-03-25 17:03 | HP.PT.NRP ---
Patient Information Patient Information: VI HOLMAN was seen in my office for initial evaluation on 10/14/22. The following Plan of Care was established for this patient: POC Established Initial Frequency: 2x /Week Initial Duration: 4 Weeks Anticipated Interventions Patient/Client Instruction: Educate patient on: Benefits of Fitness Program Therapeutic Exercise to Include: Strength training, Endurance training, Balance training, Coordination, Agility training, Body mechanics, Postural training, Flexibilty training, Gait and locomotor training, In an aquatic setting, Dynamic Lumbar Stabilization and Scapular Strength/Stabilization For the Purpose of:: To improve muscle performance and motor function Last Seen Last Seen: This patient was last seen in our office . Pertinent comments regarding their Physical therapy will appear below: Pt has not attended PT in over 3 months- appropriate to be d/c at this time- and return to MD for further evaluation as needed. At this point I will be discontinuing this patient from physical therapy. I would be happy to see this patient again in the future if found appropriate by the physician. Thank you! Desirae Jefferson, BRANT Balance/Gait/Functional tests Balance/Special Test Scores Oswestry Low Back Score: 14
== END 2022-11-17 19:00 | disposition home or self-care (01) ==
LOC: PT 15:00
PROVIDERS: PCP Internal Medicine
DX: S22.070D Wedge compression fracture of T9-T10 vertebra, subsequent encounter for fracture with routine healing (principal)
CPT/HCPCS: 97110; 97113; 97162; 97164; 97530

== ENCOUNTER → 2022-11-25 | Outpatient (CLI) | payer OTHER, SELFPAY ==
--- NOTE | 2022-11-25 12:42 | MRI_ITS ---
STUDY: MRI THORACIC SPINE WITHOUT CONTRAST REASON FOR EXAM: Female, 57 years old. fx -- [facility] approval in chart TECHNIQUE: Standardized fat and water weighted pulse sequences were obtained in the sagittal and axial planes. COMPARISON: Thoracic spine x-ray November 13, 2022 FINDINGS: Normal kyphosis of the thoracic spine. There is no substantial scoliosis. Mild chronic wedging of superior endplate of T9 with approximately 10% loss of vertebral body height. No evidence for acute fracture or other significant bony lesion at this time T1-2, T2-3, T3-4, T4-5, T5-6, T6-7, T7-8, T8-9, T9-10, T10-11, T11-12: Normal endplates. Normal disc hydration, heights and morphology of the corresponding intervertebral discs. Normal central canal and intervertebral neural foramina at the corresponding levels. Normal visualized thoracic cord. Normal conus medullaris that terminates at T12-L1. The soft tissue structures are unremarkable. MRI/Spine Thoracic (Routine) IMPRESSION: Mild chronic wedging of superior endplate of T9. No acute fracture or other significant abnormality. Electronically Signed: Manish Villela MD at 19:06 EDT ,
== END | disposition home or self-care (01) ==
LOC: MRI 12:42
PROVIDERS: PCP Internal Medicine
DX: S22.070A Wedge compression fracture of T9-T10 vertebra, initial encounter for closed fracture (principal)
CPT/HCPCS: 72146

== ENCOUNTER → 2022-12-03 | Outpatient (CLI) | payer OTHER, SELFPAY ==
[2022-12-03 09:26] LABS: Bacteria 0 SEEN /hpf (None Seen); Mucous, Urine 0 SEEN /hpf (<or=2+); Red Blood Cells-Urine 0 SEEN /hpf (0-5); Squamous Epithelial Cells - UA 0 SEEN /hpf (5-10); White Blood Cells 0 SEEN /hpf (0-5)
[2022-12-03 09:50] LABS: Color, Urine Yellow (Yellow); Glucose, Dipstick Normal (Normal); Ketone-Dipstick Negative (Negative); Leukocyte Esterase-Dipstick 25 /ul (Negative); Nitrite-Dipstick Negative (Negative); Occult Blood-Urine Negative /ul (Negative); Protein-Dipstick Negative (Negative); Urine Bilirubin Dipstick Negative (Negative); Urine Clarity Clear (Clear); Urine Urobilinogen Normal (Normal)
[2022-12-03 09:54] LABS: Absolute Neutrophil Count 2.4 X10^3/uL (2.0-7.7); Basophil# 0.04 X10^3/uL; Basophil% 0.9 % (0-1); Eosinophil# 0.09 X10^3/uL; Eosinophils% 2.1 % (0-5); Hemoglobin 12.7 g/dL (12.0-15.0); Lymphocyte % 29.7 % (19-41); Mean Corp Hgb Conc 31.8 g/dL (32-36); Mean Corpuscular Hgb 30.5 pg (27.0-32.0); Mean Corpuscular Volume 95.9 fL (81-99); Mean Platelet Vol. 9.2 fl (6.2-12.0); Monocyte# 0.51 X10^3/uL; Monocyte% 11.6 % (0-10); NRBC Flagged by Analyzer 0 % (0-5); Neutrophil # 2.43 X10^3/uL (2.7-7.7); Neutrophil % 55.5 % (47-70); Platelet Count 395 K/mm3 (150-450); RBC Distribution Width SD 45.9 fl (35.1-43.9); Red Blood Count 4.17 M/mm3 (4.2-5.4); White Blood Count 4.4 K/mm3 (4.4-11.0)
[2022-12-03 10:15] LABS: PTHIN 46.4 pg/mL (18.4-80.1)
[2022-12-03 10:17] LABS: AST(SGOT) 25 U/L (15-37); Alanine Aminotransfer ALT/SGPT 32 U/L (13-56); Alkaline Phosphatase 72 U/L (45-117); Bilirubin, Direct 0.14 mg/dL (0.00-0.30); Calcium,Total 9.8 mg/dL (8.5-10.1); Creatinine, Serum 0.73 mg/dL (0.55-1.02); EST Glomerular Filtration Rate 87 mL/min (>60); Est Glom Filt Rate - Afr Amer 105 mL/min (>60); Globulin 3.9 g/dL (2.2-4.2); Protein, Total 7.9 g/dL (6.4-8.2)
[2022-12-03 10:18] LABS: Vitamin D,25 Hydroxy 56.6 ng/mL
[2022-12-04 13:13] LABS: Anti-dsDNA Ab 3 IU/mL (0-9)
[2022-12-05 15:07] LABS: Dilute Prothrombin Time (dPT) 36.7 sec (0.0-47.6); Dilute Russell Viper Venom 34.5 sec (0.0-47.0); PTT-LA 42.2 sec (0.0-43.5); dPT Confirm Ratio 1.01 Ratio (0.00-1.34)
[2022-12-05 16:07] LABS: Anti-Cardiolipin Ab, IgG, Qn < 9 GPL U/mL (0-14); Anti-Cardiolipin Ab, IgM, Qn 56 MPL U/mL (0-12); Beta-2-Glycoprotein I IgA <9 (0-25); Beta-2-Glycoprotein I IgG <9 (0-20); Beta-2-Glycoprotein I IgM <9 (0-32); Complement C3 116 mg/dL (82-167); Interpretation Comment: (.)
== END | disposition home or self-care (01) ==
PROVIDERS: PCP Internal Medicine; Referring Provider Internal Medicine Rheumatology; Visit Provider Internal Medicine Rheumatology
DX: R76.0 Raised antibody titer (principal); D72.819 Decreased white blood cell count, unspecified; Z79.899 Other long term (current) drug therapy; E55.9 Vitamin D deficiency, unspecified; M81.0 Age-related osteoporosis without current pathological fracture
CPT/HCPCS: 36415; 80076; 81001; 82306; 82310; 82565; 83970; 85025; 86146; 86147; 86160; 86225

== ENCOUNTER → 2024-05-29 | Outpatient (CLI) | payer OTHER, SELFPAY ==
[2024-05-29 12:01] LABS: EXAGEN MAILED SPECIMEN
[2024-05-29 12:34] LABS: Absolute Lymphocyte Count 1.61 X10^3/uL (0.83-4.51); Absolute Neutrophil Count 2.8 X10^3/uL (2.0-7.7); Basophil# 0.05 X10^3/uL; Eosinophil# 0.12 X10^3/uL; Eosinophils% 2.4 % (0-5); Hematocrit 40.8 % (37-47); Hemoglobin 13.1 g/dL (12.0-15.0); Lymphocyte # 1.61 X10^3/ul (0.83-4.51); Mean Corp Hgb Conc 32.1 g/dL (32-36); Mean Corpuscular Hgb 30.5 pg (27.0-32.0); Mean Corpuscular Volume 94.9 fL (81-99); Mean Platelet Vol. 10.4 fl (6.2-12.0); NRBC Flagged by Analyzer 0 % (0-5); Neutrophil # 2.84 X10^3/uL (2.7-7.7); Neutrophil % 56.4 % (47-70); Platelet Count 297 K/mm3 (150-450); RBC Distribution Width CV 13.4 % (11.6-14.6); RBC Distribution Width SD 46.6 fl (35.1-43.9)
[2024-05-29 12:35] LABS: Color, Urine Yellow (Yellow); Glucose, Dipstick Normal (Normal); Ketone-Dipstick 5 mg/dl (Negative); Leukocyte Esterase-Dipstick 25 /ul (Negative); Nitrite-Dipstick Negative (Negative); Occult Blood-Urine Negative /ul (Negative); Protein-Dipstick Negative (Negative); Specific Gravity, Urine 1.015 (1.002-1.030); Urine Bilirubin Dipstick Negative (Negative); Urine Clarity Clear (Clear); Urine Urobilinogen Normal (Normal)
[2024-05-29 12:37] LABS: Erythrocyte Sedimentation Rate 4 mm/hr (0-30)
[2024-05-29 12:43] LABS: Protein, Urine (Random) < 6.0 mg/dL (<11.9); Protein:Creat Ratio 186 mg/g CRE (0-200)
[2024-05-29 13:46] LABS: ALB/GLOB Ratio 1.2 RATIO (0.9-2.4); AST(SGOT) 26 U/L (15-37); Alanine Aminotransfer ALT/SGPT 27 U/L (13-56); Albumin, Serum 4.2 g/dL (3.2-5.0); Alkaline Phosphatase 59 U/L (45-117); Anion Gap 7 (5-15); BUN 9 mg/dL (7-18); BUN/Creat Ratio 11.5 RATIO (10-20); CRP < 2.90 mg/L (0.0-3.0); Calcium,Total 9.8 mg/dL (8.5-10.1); Chloride 103 mmol/L (98-107); Creatinine, Serum 0.78 mg/dL (0.55-1.02); EST Glomerular Filtration Rate 80 mL/min (>60); Est Glom Filt Rate - Afr Amer 97 mL/min (>60); Globulin 3.5 g/dL (2.2-4.2); Glucose 114 mg/dL (74-106); Hepatitis B Surface Antibody Reactive; Hepatitis B Surface Antigen Non-Reactive (Nonreactive); Hepatitis C Antibody Non-Reactive (Nonreactive); Potassium 4.2 mmol/L (3.5-5.1); Protein, Total 7.7 g/dL (6.4-8.2); Sodium Level 137 mmol/L (136-145)
== END | disposition home or self-care (01) ==
LOC: MTLAB 10:42
PROVIDERS: PCP Internal Medicine; Referring Provider Internal Medicine Rheumatology; Visit Provider Internal Medicine Rheumatology
DX: M06.4 Inflammatory polyarthropathy (principal); R76.8 Other specified abnormal immunological findings in serum
CPT/HCPCS: 36415; 80053; 81002; 82570; 84156; 85025; 85652; 86140; 86706; 86803; 87340